=== PATIENT | male | born 1970 | race African-American/Black ===

== ENCOUNTER → 2016-08-31 | Outpatient (REF) ==
--- NOTE | 2016-08-31 10:24 | DI ---
Two x-rays of the chest. Comparison: 08/28/2014. Reason for exam: Annual screening. FINDINGS: No pneumothorax, pleural effusion, or focal consolidation. There is similar appearing gr anulomas disease seen within the lung parenchyma and mediastinum. The cardiac silhouette is not enl arged. Similar appearing mild degenerative disease in the thoracic spine. Impression: No acute cardiopulmonary process.
== END ==
LOC: RAD 09:13
DX: Z02.89 Encounter for other administrative examinations (principal)